=== PATIENT | male | born 2000 | race Caucasian/White ===

== ENCOUNTER 2024-11-29 08:17 | Emergency (ER) | payer OTHER, SELFPAY ==
[2024-11-29 08:23] VITALS: BP 105/71
[2024-11-29 08:28] VITALS: BMI 21.9
[2024-11-29 08:41] LABS: Hematocrit 45.7 % (39.0-52.0); Hemoglobin 16.5 g/dL (13.0-18.0); Mean Corp Hgb Conc. 36.1 g/dL (33.0-37.0); Mean Corpuscular Volume 80.3 fL (80.0-94.0); Nucleated Red Blood Cells % 0 % (-); Platelet Count 332 10^3/uL (130-400); Red Cell Dist. Width 12.4 % (11.5-14.5)
[2024-11-29 09:00] VITALS: BP 97/66
[2024-11-29 09:22] LABS: ALT (SGPT) 21 U/L (0-50); AST (SGOT) 22 U/L (17-59); Albumin 5.5 g/dl (3.5-5.0); Alkaline Phosphatase 59 U/L (38-126); Blood Urea Nitrogen 19 mg/dl (9-20); Calcium 10.2 mg/dl (8.4-10.2); Carbon Dioxide 23 mmol/L (22-30); Chloride 103 mmol/L (98-107); Estimated Creatinine Clearance 116 ml/min; Glucose 106 mg/dl (70-99); Potassium 4.4 mmol/L (3.5-5.1); Sodium 138 mmol/L (135-145); Total Protein 8.4 g/dl (6.3-8.2); eGFR > 60.00
[2024-11-29 10:01] VITALS: BP 115/85
[2024-11-29] MEDS: KEPPRA 1000 MG IV (10:43)
[2024-11-29] MEDS: KLONOPIN 2 MG PO (11:29)
[2024-11-29 11:30] VITALS: BP 98/81
[2024-11-29 12:00] VITALS: BP 102/69
[2024-11-29] MEDS: SUBUTEX 8 MG SL (12:42)
[2024-11-29 13:00] VITALS: BP 99/64
--- NOTE | 2024-11-29 13:05 | ED.GENMED ---
History of Present Illness
General
Chief Complaint: Seizure
Source: patient and police
Exam Limitations: none
Time Seen by Provider: 11/29/24 08:23
Nursing documentation reviewed up to this point in time: agreed with
History of Present Illness
History of Present Illness:
Note:
CHIEF COMPLAINT(S)
Seizure activity.
HISTORY OF PRESENT ILLNESS
The patient is a 24-year-old male with a history of seizure episodes. He reports having experienced four seizures today and two seizures the previous day. He describes a pre-seizure sensation with chest discomfort followed by loss of awareness and
subsequent awakening on the floor with foam at the mouth, indicating a tonic-clonic seizure. The patient has a history of staring episodes since age 12 and has been on levetiracetam therapy. He currently takes 500 mg of levetiracetam twice daily,
which he last took this morning. The patient has been in rehab recently but was discharged due to a short stay. He admits to recent use of non-prescribed benzodiazepines and opioids (yesterday), which may contribute to his current condition.
PAST MEDICAL AND SURIGICAL HISTORY
Previous history of staring episodes and tonic-clonic seizures.
ADDITIONAL HISTORY OBTAINED FROM SOURCES OTHER THAN THE PATIENT
The patient made mention of a neurologist managing his condition and indicated that his mother holds further contact information for the neurologist.
SOCIAL DETERMINANTS AFFECTING HEALTH
The patient reports recent discharge from rehab and ongoing use of non-prescribed substances, including benzodiazepines and opioids.
MEDICATIONS
Levetiracetam 500 mg twice a day.
REVIEW OF SYSTEMS
- Neurological: Recurrent seizures, loss of consciousness.
- Gastrointestinal: Reports of foaming at the mouth.
- Psychiatric: Recent rehabilitation stay indicating ongoing substance use issues.
PHYSICAL EXAM
General: Alert, no acute distress.
Skin: Warm, dry.
Head: Normocephalic, atraumatic.
Neck: Supple, trachea midline.
Eye, Ears, Nose, Mouth, and Throat: Oral mucosa moist.
Cardiovascular: Normal peripheral perfusion, No edema.
Respiratory: Respirations are non-labored.
Gastrointestinal: Abdomen soft and non-distended.
Back: Normal range of motion, Normal alignment.
Musculoskeletal: Normal range of motion, normal strength.
Neurological: Alert and oriented to person, place, time, and situation, No focal neurological deficit observed.
Psychiatric: Cooperative, appropriate mood & affect.
PROBLEM LIST
Acute:
- Recent seizure activity.
Chroni?:
- History of seizure disorder.
PLAN
- Obtain a CT scan and blood tests to evaluate ongoing seizure activity.
- Address substance use, investigate a possible correlation with seizure episodes.
- Possible referral to neurology for further evaluation and management adjustment.
DIFFERENTIAL DIAGNOSIS
The Differential Diagnosis includes, in no particular order and is not limited to:
- Epilepsy
- Substance-induced seizure
- Withdrawal seizure
- Metabolic derangement (e.g., electrolyte imbalance)
- Intracranial lesion
- Infection (e.g., encephalitis)
- Hypoglycemia
- Cardiogenic syncope
- Psychogenic non-epileptic seizures (PNES)
- Trauma-induced seizure
CARE-UPDATE
11/29/24 - :28
Patient has experienced recurrent seizures without any observed seizure activity during the ED stay. EEG results are normal, and no seizure activity has been reported by intermediate staff. Benzodiazepine withdrawal is not suspected, as he has been
continuously taking the medication while in intermediate. Plan to discharge the patient back to intermediate on 1,000 mg of Keppra twice daily. Additionally, recommend starting Suboxone at 8 mg sublingually twice daily. Follow-up with neurology is advised for
further assessment and management.
CARE-UPDATE
11/29/24 - :28
CT scan results are normal. No new abnormalities detected.
EKG
My independent EKG interpretation is:
- Time of EKG: [Not Specified]
- Rhythm: Normal sinus rhythm with sinus arrhythmia
- Heart Rate: 76 bpm
- MA Interval: Normal
- QRS Duration: Normal
- QT Interval: Normal
- Watkins: [Not Specified]
- Abnormalities: None noted
Disposition:
SUMMARY OF ENCOUNTER
The patient, a 24-year-old male with a history of seizure episodes, presented to the emergency department for evaluation of recent seizure activity. He reported experiencing multiple tonic-clonic seizures over the past two days, accompanied by chest
discomfort, loss of awareness, and postictal confusion. The patient has a known seizure disorder, managed with levetiracetam, and has admitted to recent use of non-prescribed benzodiazepines and opioids. During his ED stay, no seizure activity was
observed. EEG and CT scan results were normal, indicating no new neurological abnormalities. The patient was evaluated for possible substance-induced or withdrawal seizures.
DISPOSITION
Discharge to intermediate.
PLAN
The patient will continue on levetiracetam, with an increased dose of 1,000 mg twice daily. It is recommended that he starts Suboxone at 8 mg sublingually twice daily to address opiate dependency. Follow-up with neurology is advised for further
assessment and management adjustment.
INDEPENDENT REVIEW OF LABS AND INTERPRETATION OF TESTS
- My independent interpretation of the CT scan results is normal, with no new abnormalities detected.
- My independent EKG interpretation reveals normal sinus rhythm with sinus arrhythmia and a heart rate of 76 bpm. No abnormalities noted.
MEDICATION RECONCILIATION
- Levetiracetam: Increased to 1,000 mg orally twice daily as maintenance therapy for seizure management.
- Suboxone: Prescribed at 8 mg sublingually twice daily to address opiate dependency.
MEDICAL DECISION MAKING
1. Number and Complexity of Problems Addressed:
Chronic conditions affecting care: History of seizure disorder, benzodiazepine dependency, opiate dependency.
2. Data:
Category 1
- My independent interpretation of the CT scan shows no new abnormalities.
- My independent interpretation of the EKG shows normal sinus rhythm with sinus arrhythmia.
Category 2
- Clinical information was obtained from an independent historian, highlighting the neurologists involvement in the patients care management.
3. Risk:
- Prescription drug management due to ongoing seizure disorder and substance dependencies.
- Consideration of Admission/Observation: Escalation of care including admission/observation was considered given the complexity and risk of the patients presenting complaint and underlying comorbidities. However, ultimately, I feel the patient is
safe for outpatient management with close follow-up. Reasoning: Work-up reassuring, does not reveal any acute life/organ-threatening processes, patients symptoms well controlled upon reevaluation, reexamination is reassuring, vitals are stable,
patient agreeable with discharge, reliable for follow-up.
DIAGNOSIS
- Seizure disorder, not intractable, without status epilepticus (ICD-10: G40.909)
- Benzodiazepine dependence, uncomplicated (ICD-10: F13.20)
- Opioid dependence, uncomplicated (ICD-10: F11.20)
Phy Exam
Physical Exam
Physical Exam:
.
Course
Orders/Labs/Results
Orders:
Orders
11/29/24
Electrocardiogram (*1) Stat
Reason for Study: Chest Pain
Comment: DONE
11/29/24 08:23
CT Head W/o Iv Contrast Urgent
Comment:
Reason For Exam: multiple seizures, hit head
EKG- Treatment ONCE
IV Insert/Care/Rem.- Treatment PRN
Pulse Ox/cont/shift [RESP] Stat
Quantity: 1
11/29/24 08:29
Complete Blood Count/With Diff Urgent
Comprehensive Metabolic Panel Urgent
11/29/24 10:38
EEG Routine Urgent
Reason for Exam: seizure like activity
Levetiracetam Injectable [Keppra] 1,000 mg IV NOW STA
11/29/24 11:22
Clonazepam [Klonopin] 2 mg PO NOW STA
11/29/24 12:29
Buprenorphine [Subutex] 8 mg SL STAT STA
Abnormal Lab Results
11/29/24
08:29
Neutrophils % 77.0 H %
(42.2-75.2)
Lymphocytes % 15.7 L %
(20.5-51.1)
Glucose 106 H mg/dl
(70-99)
Total Protein 8.4 H g/dl
(6.3-8.2)
Albumin 5.5 H g/dl
(3.5-5.0)
11/29/24 08:29
11/29/24 08:29
Vital Signs
Initial and Last Documented VS:
Initial Vital Signs
Temp Pulse Resp BP Pulse Ox
98.7 F 82 16 105/71 98
11/29/24 08:23 11/29/24 08:23 11/29/24 08:23 11/29/24 08:23 11/29/24 08:23
Last Documented Vital Signs
Temp Pulse Resp BP Pulse Ox
98.7 F 60 19 99/64 98
11/29/24 08:23 11/29/24 13:00 11/29/24 13:00 11/29/24 13:00 11/29/24 13:05
*Pulse Oximetry
SaO2: 98
Oxygen Mode of Delivery: Room air
Patient hypoxic: no
*Critical Care Note
Total Time (30-74mins, 75-104mins- exclusive of procedures): Not Applicable
ED Attending Note
-
Portions of this chart may have been created with voice recognition software.� Occasional wrong word or��sound alike� substitutions may have occurred due to the inherent limitations of voice recognition software.
Discharge Plan
Departure
Patient Disposition: Home (Routine Discharge)
Date of Disposition: 11/29/24
Time of Disposition: 13:30
Patient with high blood pressure during this ER visit?: No
Condition: Good
Discharge Problem:
Seizures, Opiate dependence, Benzodiazepine abuse, continuous
Instructions: Seizures, Adult (DC), Opioid use disorder, Benzodiazepine use disorder - ED discharge instructions
Referrals:
[facility] [Family Provider, General]
Activity Restrictions/Additional Instructions:
see [facility] for substance abuse management
Interventions
Interventions:
*Risk Screen - Suicide Last Done: 11/29/24 08:27
*General Assessment Last Done: 11/29/24 08:26
*Neglect/Abuse Screening Last Done: 11/29/24 08:27
*ED- Fall Risk Assessment Last Done: 11/29/24 08:26
*ED COVID-19 Vaccine History Last Done: 11/29/24 08:26
ED- Cardiac Assessment Last Done: 11/29/24 08:28
ED- Neurological Assessment Last Done: 11/29/24 08:28
ED- Pulmonary Assessment Last Done: 11/29/24 08:28
Discharge Date and Time
Print Language: FRISIAN
--- NOTE | 2024-11-29 13:28 | EEG.RPT ---
Electroencephalogram Report
Recording
Date of EE11/29/24
Type of EEG: Routine
Length of EEG recordin minutes
Done with Video Recording: Yes
Patient Status: Emergency Room
Recording Conditions: Awake, Drowsy and Asleep
Hyperventilation Performed: Yes
Photic Stimulation Performed: Yes
Report
LESS THAN 1 HOUR EEG INTERPRETATION:
Unremarkable EEG for age
CLINICAL CORRELATION:
A normal EEG does not rule out a diagnosis of epilepsy. If clinical suspicion for seizure persists, a prolonged recording may be warranted.
Clinical correlation is advised.
METHODS:
A 21 channel digitized electroencephalogram (EEG) was performed using the 10/20 international system of electrode placement and one-lead of ECG recorded. The [employer] quantitative EEG system was utilized.
ELECTROENCEPHALOGRAPHER IMPRESSION(S):
Quality of study
Good
Background
There was an unremarkable anterior-posterior voltage gradient of alpha frequency.
With eye opening the background activity changed to a low voltage mixture of frequencies.
There were no significant asymmetries of background activity noted.
Sleep
Drowsiness present
Stage 1 present
Stage 2 present
Hyperventilation
Minimal increase in background amplitude symmetrically
Photic Stimulation
No activation
ECG
Normal sinus rhythm
== END 2024-11-29 15:43 | disposition home or self-care (01) ==
LOC: EMR 08:17
PROVIDERS: EMERGENCY PHYSICIAN Emergency Medicine
DX: G40.909 Epilepsy, unspecified, not intractable, without status epilepticus (principal); F13.20 Sedative, hypnotic or anxiolytic dependence, uncomplicated; F11.20 Opioid dependence, uncomplicated; I49.8 Other specified cardiac arrhythmias; Z79.899 Other long term (current) drug therapy
CPT/HCPCS: 96374; 99284; 70450; 80053; 85025; 93005; 95816

== ENCOUNTER 2024-11-30 21:57 | Observation (INO) | payer OTHER, SELFPAY ==
[2024-11-30 18:57] VITALS: BP 101/75
[2024-11-30 19:03] VITALS: BMI 22.2
--- NOTE | 2024-11-30 19:53 | ED.GENMED ---
History of Present Illness
General
Chief Complaint: Seizure
Source: patient
Exam Limitations: none
Time Seen by Provider: 11/30/24 19:40
Nursing documentation reviewed up to this point in time: agreed with
History of Present Illness
History of Present Illness:
Patient with history of seizure disorder on Keppra, presents to ED from [facility] secondary to multiple episodes of witnessed seizures, while inside his cell. Patient reports having had at least 3-4 episodes today, each
with each episode lasting seconds to minutes. Patient is complaining of, from having fallen backward in his cell. Denies blurred vision. Denies dizziness. Denies loss of sensation or weakness. Denies tongue biting. Denies urinary or bowel
incontinence. Patient states that he gets sensation of weird feeling in his chest, prior to seizure episodes. Patient reports having had Xanax daily for a long period of time, until he was imprisoned 2 days ago. Patient did receive Klonopin
yesterday and today. Denies recent change in medications. Denies recent illness.
Review of Systems
Review of Systems
Allergies reviewed?: Yes
All Other Systems: ROS reviewed and negative except as documented in HPI and ROS
Constitutional: Reports no symptoms
Respiratory: Reports no symptoms
Cardiac: Reports no symptoms
ABD/GI: Reports no symptoms; Denies nausea or vomiting
Musculoskeletal: Reports no symptoms
Skin: Reports no symptoms
Neurological: Reports headache; Denies dizzy, weakness or numbness
Phy Exam
Physical Exam
Physical Exam:
Physical Exam
General: mild distress, not acutely ill. afebrile
Head: eomi. superficial abrasion noted over derrick of head, without bleeding
Neck: supple. normal range of motion
Heart: s1/s2 regular rate and rhythm.
Lungs: no acute respiratory distress. clear bilaterally
Abdomen: normal bowel sounds. not tender.
Neuro: alert and oriented x 3. no focal neurological deficits. normal speech
Skin: no rash. no tongue laceration noted.
Psychiatric: well kept. interactive and cooperative
Extremities: no edema. no calf tenderness.
Course
Orders/Labs/Results
Orders:
Orders
11/30/24 19:51
0.9% Sodium Chloride 500 ml [Nss] 500 ml IV BOLUS
Acetaminophen [Tylenol] 650 mg PO NOW STA
11/30/24 19:52
Urine Drug Abuse Screen Urgent
11/30/24 19:54
Keppra (Levetiracetam) [S] Urgent
11/30/24 19:55
CPK [Creatine Phosphokinase] Urgent
Complete Blood Count/With Diff Urgent
Comprehensive Metabolic Panel Urgent
Magnesium Urgent
Prolactin Urgent
11/30/24 21:43
Admit/Transfer Patient As Directed
Co-Sign Provider:
Level of Care: Observation services
Assign to:: Medical/Surgical
Physician / Group: gil
Diagnosis: Witnessed multple of Sz mimics episodes
11/30/24 22:48
Clonidine [Catapres] 0.1 mg PO TID
Ondansetron Orally Disint [Zofran Odt (Orally Disintegrating)] 4 mg PO Q6HPRN PRN nausea
11/30/24 22:48
NEUROLOGY CONSULT Routine
Consulting Provider: Ashu Young
Was physician already notified: Yes
Reason for consult: Witnessed multple of Sz mimics episodes
Compression Sleeves [Pneumatic Compression Sleeves] As Directed
Type: Knee high
DX Deep Vein Thrombosis Video Routine
12/01/24 Breakfast
Regular
At Your Request: Full Participation
Does patient need a safe tray?: Yes
EEG Routine IN AM
Reason for Exam: eval for status epilepticus
Neurology Consult: OTHER
Comment: Dr Ashu Young
CBC/No Diff [Complete Blood Count/No Diff] IN AM
CMP [Comprehensive Metabolic Panel] IN AM
12/01/24 08:00
Clonazepam [Klonopin] 2 mg PO BID
Levetiracetam [Keppra] 1,000 mg PO BID
Abnormal Lab Results
11/30/24
19:55
Absolute Monos (auto) 0.7 H 10^3/uL
(0.1-0.6)
BUN 29 H mg/dl
(9-20)
Albumin 5.2 H g/dl
(3.5-5.0)
11/30/24 19:55
11/30/24 19:55
Vital Signs
Initial and Last Documented VS:
Initial Vital Signs
Pulse Resp BP Pulse Ox
65 18 101/75 94
11/30/24 18:57 11/30/24 18:57 11/30/24 18:57 11/30/24 18:57
Last Documented Vital Signs
Temp Pulse Resp BP Pulse Ox
98.1 F 59 16 88/55 100
11/30/24 22:50 11/30/24 22:50 11/30/24 22:50 11/30/24 22:50 11/30/24 22:50
MDM/Problems Addressed
MDM/Problems Addressed:
Patient return visit to ED with multiple witnessed seizure episodes. As such, patient will be admitted for further evaluation and treatment. Evening dose of Keppra provided prior to arrival.
, neurology, notified via [employer].
*Pulse Oximetry
SaO2: 100
Oxygen Mode of Delivery: Room air
Patient hypoxic: no
*Critical Care Note
Total Time (30-74mins, 75-104mins- exclusive of procedures): Not Applicable
ED Attending Note
-
Portions of this chart may have been created with voice recognition software.� Occasional wrong word or��sound alike� substitutions may have occurred due to the inherent limitations of voice recognition software.
Discharge Plan
Departure
Patient Disposition: Admit
Date of Disposition: 11/30/24
Time of Disposition: 20:56
Admit to: Telemetry
Presentation/result/management discussed w/ accepting MD/DO: Hospitalist
Discharge Problem:
Seizure
Interventions
Interventions:
*Risk Screen - Suicide Last Done: 11/30/24 22:49
*General Assessment Last Done: 11/30/24 19:31
*Neglect/Abuse Screening Last Done: 11/30/24 22:00
*ED- Fall Risk Assessment Last Done: 11/30/24 19:04
*ED COVID-19 Vaccine History Last Done: 11/30/24 22:49
*Nursing Disposition Last Done: 11/30/24 22:51
ED- Neurological Assessment Last Done: 11/30/24 19:31
Discharge Date and Time
Discharge Date/Time: 11/30/24 22:51
[2024-11-30] MEDS: TYLENOL 650 MG PO (19:56)
[2024-11-30] MEDS: NSS 500 IV ×2 (19:57→23:29)
[2024-11-30 20:00] VITALS: BP 87/65
[2024-11-30 20:16] LABS: Hematocrit 44.6 % (39.0-52.0); Hemoglobin 15.7 g/dL (13.0-18.0); Mean Corp Hgb Conc. 35.2 g/dL (33.0-37.0); Mean Corpuscular Volume 82.7 fL (80.0-94.0); Nucleated Red Blood Cells % 0 % (-); Platelet Count 299 10^3/uL (130-400); Red Cell Dist. Width 12.4 % (11.5-14.5)
[2024-11-30 20:25] LABS: ALT (SGPT) 18 U/L (0-50); AST (SGOT) 19 U/L (17-59); Albumin 5.2 g/dl (3.5-5.0); Alkaline Phosphatase 57 U/L (38-126); Blood Urea Nitrogen 29 mg/dl (9-20); Calcium 9.3 mg/dl (8.4-10.2); Carbon Dioxide 26 mmol/L (22-30); Chloride 99 mmol/L (98-107); Estimated Creatinine Clearance 96 ml/min; Glucose 94 mg/dl (70-99); Magnesium 2.2 mg/dl (1.6-2.3); Potassium 4.3 mmol/L (3.5-5.1); Sodium 136 mmol/L (135-145); Total Protein 7.6 g/dl (6.3-8.2); eGFR > 60.00
[2024-11-30 20:29] VITALS: BP 96/68
[2024-11-30 21:01] VITALS: BP 92/61
--- NOTE | 2024-11-30 21:40 | HPS.HSE ---
Family Physician
-
Family Physician: [facility]
Chief Complaint
-
witnessed Sz like episodes in [facility]
History of Present Illness
HPI�
24M from [facility] seen at ER :
- pw multiple episodes of witnessed seizures, while inside his cell.
- at least 3-4 episodes today, each with each episode lasting seconds to minutes.
- having fallen backward
- reports having had Xanax daily for a long period of time, until he was imprisoned 2 days ago.
- Patient did receive Klonopin yesterday and today.
- Denies recent change in medications. Denies recent illness.
ROS
Denies blurred vision.
Denies dizziness.
Denies loss of sensation or weakness.
Denies tongue biting.
Denies urinary or bowel incontinence.
Medical History
Past Medical History
Past Medical History: Reports Psychiatric (anxiety )
Past Surgical History: Reports None
Social History
Tobacco: Non-smoker
Alcohol: None
Drug: Other
Family History
Family History: Not pertinent
Allergies / Home Medications
Allergies reflects when Allergies were last updated in [email or web address].
Home Medications with original date entered in [email or web address]
Allergy/Medication List:
Allergies
Allergy/AdvReac Type Severity Reaction Status Date / Time
No Known Allergies Allergy Verified 11/30/24 19:04
Home Medications
acetaminophen 325 mg capsule 325 mg PO TID 11/30/24
clonazepam 2 mg tablet 2 mg PO BID 11/30/24
clonidine HCl 0.1 mg tablet 0.1 mg PO TID 11/30/24
levetiracetam 1,000 mg tablet (Keppra) 1,000 mg PO BID 11/30/24
ondansetron 4 mg disintegrating tablet 4 mg PO Q6H PRN nausea 11/30/24
Review of Systems
-
Constitutional: Reports No Symptoms
EENT: Reports No Symptoms
Respiratory: Reports No Symptoms
Cardiac: Reports No Symptoms
Abdomen/GI: Reports No Symptoms
: Reports No Symptoms
Musculoskeletal: Reports No Symptoms
Skin: Reports No Symptoms
Neurological: Reports See HPI
Endocrine: Reports No Symptoms
Hematologic/Lymphatic: Reports No Symptoms
Psych: Reports No Symptoms
Physical Exam
Vital Signs
Vital Signs
Temp Pulse Resp BP Pulse Ox
97.4 F 59 12 101/75 100
11/30/24 20:45 11/30/24 19:30 11/30/24 19:30 11/30/24 18:57 11/30/24 19:53
Physical Exam
General: Well Developed, Well Nourished and No Apparent Distress
HEENT: NormoCephalic, Moist mucous membranes and Atraumatic
Respiratory: Clear
Cardiac: S1/S2 and Regular Rhythm; No Murmur or Rub
GI: Soft, Non Tender, Non Distended and Normal Bowel Sounds; No Organomegaly
Rectal: Deferred by Provider
Musculoskeletal: No Clubbing, No Cyanosis and No Edema
Skin: No Rash
Neuro: Nonfocal/grossly intact
Laboratory Results
-
11/30/24 19:55
11/30/24 19:55
Laboratory Results
Total Bilirubin 1.2 mg/dl (0.2-1.3) 11/30/24 19:55
AST 19 U/L (17-59) 11/30/24 19:55
ALT 18 U/L (0-50) 11/30/24 19:55
Alkaline Phosphatase 57 U/L (38-126) 11/30/24 19:55
Data Reviewed
-
CT Scan: Report Reviewed by me
Lab Data: Labs Reviewed by me
Impression/Plan
-
Relevant Data�
11/30/24
19:55
Absolute Monos (auto) 0.7 H
BUN 29 H
Albumin 5.2 H
HCT
Unremarkable unenhanced CT of the brain
EKG
NORMAL SINUS RHYTHM WITH SINUS ARRHYTHMIA
NORMAL ECG
NO PREVIOUS ECGS AVAILABLE
Confirmed by SANDRA MCCLELLAN MD ([id number]) on 11/29/2024 8:55:50 AM
ASSESSMENT & PLAN
[facility] multiple [facility] Sz mimics episodes [facility]
Reports Passed out and fall backwards
Reports HX Daily Xanax use -
- DDX: Status epilepticus vs. conversion disorder vs. BZD withdrawal seizure
- Not in outside hospital Rx list
- No evidence of tongue bitting
- f/u Keppra level
- f/u UDS
- initiated clonazepam 2mg PO BID
- agree with Keppra 1000mg BID
- agree with clonidine 0.1 mg BID
- EEG
- Neuro consult
DVT Px: SCD
Full code
OBS MS
[2024-11-30 22:50] VITALS: BP 88/55; BMI 21.3
--- NOTE | 2024-11-30 23:30 | PTCARENOTE ---
Receive patient from ED. Patient AAOx3, accompanied by two guards. Patient assessed, oriented to the unit. Call gonzalez in reach.
--- NOTE | 2024-11-30 23:30 | PTCARENOTE ---
Patient's BP 88/55. Covering provider aware. Orders received.
[2024-11-30] MEDS: CATAPRES PO (23:37)
[2024-12-01] MEDS: NSS 1000 IV (00:15)
[2024-12-01 01:09] VITALS: BP 92/57
[2024-12-01 03:38] VITALS: BP 92/50
[2024-12-01] MEDS: KEPPRA 1000 MG PO (08:07)
[2024-12-01] MEDS: KLONOPIN 2 MG PO (08:07)
[2024-12-01 08:35] VITALS: BP 111/66
[2024-12-01] MEDS: CATAPRES 0.1 MG PO (08:51)
[2024-12-01] MEDS: TYLENOL 650 MG PO (08:51)
--- NOTE | 2024-12-01 09:00 | VATNOTE ---
VAT rounds: Patient currently has no iv access. patient refusing restart. Md aware. will continue to monitor the needs.
--- NOTE | 2024-12-01 09:30 | PTCARENOTE ---
Patient anxious and agitated this morning; he states that he wants to be discharged and is demanding to see a doctor; patient pulled out his IV and is refusing to have a new one placed; Dr. Rodriguez notified and came to speak with patient; ok for
no access at this time per MD; awaiting neurology input.
--- NOTE | 2024-12-01 10:00 | PTCARENOTE ---
Patient had 2 episodes vomiting after PO medications; refused Zofran.
--- NOTE | 2024-12-01 12:31 | PTCARENOTE ---
Patient refused 1100 vital signs.
[2024-12-01] MEDS: NSS IV (12:34)
--- NOTE | 2024-12-01 12:56 | CON.NEURO ---
Neuro Assessment/Plan
Assessment
EEG was normal.
24 yr old man with benzo withdrawal seizure. in place of benzo taper, would give Librium 100 mg x1 given long half life and active metabolites
can be discharged back to corrections
epilepsy continue Keppra 1000 BID
return to ED if 2 or more sz without return to baseline, sz >5 mins, or post ictal >1 hr
Consultation
Order
Date of Consultation: 12/01/24
Requesting Provider: Leah
Reason for Consult: seizure
Subjective/Objective
Subjective Data
Date of Service: December 01, 2024
24M from [facility] h/o epilepsy presenting with 3-4 seizures, each lasting seconds to minutes. He was taking 4-5 bars of Xanax 2mg every day until he was incarcerated 3 days ago. in penitentiary got Klonopin daily.
prior to this his epilepsy was well controlled with Keppra 1000 BID.
Objective Data
Vital Signs
Temp Pulse Resp BP Pulse Ox
36.7 C 56 16 111/66 100
12/01/24 08:35 12/01/24 08:51 12/01/24 08:35 12/01/24 08:51 12/01/24 08:35
Sodium 136 mmol/L (135-145) 11/30/24 19:55
Potassium 4.3 mmol/L (3.5-5.1) 11/30/24 19:55
BUN 29 mg/dl (9-20) H 11/30/24 19:55
Glucose 94 mg/dl (70-99) 11/30/24 19:55
Calcium 9.3 mg/dl (8.4-10.2) 11/30/24 19:55
Ur Buprenorphine Negative (Negative) 12/01/24 03:30
Patient Allergies
No Known Allergies Allergy (Verified 11/30/24 19:04)
Physical Exam
-
AAOx3, speech clear, language intact
VFF, EOMI, face symmetric
full strength b/l UE/LE
sensation intact
Medications
-
Active Medications
Generic Name Dose Route Start Last Admin
Trade Name Freq PRN Reason Stop Dose Admin
Acetaminophen 650 mg 12/01/24 08:32 12/01/24 08:51
Acetaminophen 325 Mg Tablet PO 12/29/24 08:31 650 mg
Q4HPRN PRN Administration
BUCHANAN/ mild pain/ fever
Clonazepam 2 mg 12/01/24 08:00 12/01/24 08:07
Clonazepam 1 Mg Tablet PO 12/29/24 07:59 2 mg
BID OPAL Administration
Clonidine HCl 0.1 mg 11/30/24 22:48 12/01/24 08:51
Clonidine 0.1 Mg Tablet PO 12/28/24 22:47 0.1 mg
TID OPAL Administration
Sodium Chloride 1,000 mls @ 80 mls/hr 11/30/24 23:15 12/01/24 12:34
Nss IV Not Given
.[id number] OPAL
Levetiracetam 1,000 mg 12/01/24 08:00 12/01/24 08:07
Levetiracetam 500 Mg Regular Release Tablet PO 12/29/24 07:59 1,000 mg
BID OPAL Administration
Ondansetron HCl 4 mg 11/30/24 22:48
Ondansetron 4 Mg (Orally-Disintegrating) Tablet PO 12/28/24 22:47
Q6HPRN PRN
nausea
Sodium Chloride 0 flush 11/30/24 23:00
Sodium Chloride 0.9% (Flush) Syringe IV 12/28/24 22:59
PER PROTOCOL OPAL
Home Medications
�Medication �Instructions �Recorded
acetaminophen 325 mg capsule 325 mg PO TID 11/30/24
clonazepam 2 mg tablet 2 mg PO BID 11/30/24
clonidine HCl 0.1 mg tablet 0.1 mg PO TID 11/30/24
levetiracetam 1,000 mg tablet 1,000 mg PO BID 11/30/24
(Keppra)
ondansetron 4 mg disintegrating 4 mg PO Q6H PRN nausea 11/30/24
tablet
[2024-12-01] MEDS: LIBRIUM 100 MG PO (13:15)
--- NOTE | 2024-12-01 13:16 | W.DCSUMMARY ---
Discharge Summary
Discharge Data
Date of Admission: 11/30/24
Date of Discharge: 12/01/24
Total time spent discharging patient (in min): 48
-
Pending Results: No
Hospital Course
Mr. Putnam is a 24-year-old male with a medical history of epilepsy (on Keppra since age 12) and polysubstance abuse who presented following an episode of witnessed seizure-like activity at [facility]. His vital signs and labs
in the ED were unremarkable, other than a urine tox screen positive for opiates, benzodiazepines, and marijuana. Imaging of his head was also unremarkable. He was evaluated by neurology and EEG was obtained which showed no acute abnormalities. He
has remained hemodynamically stable since arrival. He appears at baseline mental status. He was given a single dose of Librium 100 mg p.o. which is long-acting. At time of hospital discharge he was medically stable. He will be discharged back
into the custody of law enforcement. If he has 2 or more seizures without return to baseline in between, he should return to the emergency department for further evaluation and management. Patient reports plans to seek drug and alcohol rehab in
the near future, which is an excellent idea.
General: No Apparent Distress, Comfortable and Conversant, in law enforcement custody
HEENT: NormoCephalic, Moist mucous membranes, Atraumatic
Respiratory: Clear and Non Labored Respirations
Cardiac: S1/S2 and Regular Rhythm; No Rub or Gallop
GI: Soft, Non Tender, Non Distended and Normal Bowel Sounds
Musculoskeletal: No Edema, no deformity
: NO Cardenas
Neuro: Awake, Alert, Nonfocal/grossly intact
Psych: Anxious but cooperative
Discharge Plan
-
Patient Disposition: Senior Living
Discharge Diagnosis/Procedures: Seizures
Activity Restrictions/Additional Instructions:
Mr. Putnam is a 24-year-old male with a medical history of epilepsy (on Keppra since age 12) and polysubstance abuse who presented following an episode of witnessed seizure-like activity at [facility]. His vital signs and labs
in the ED were unremarkable, other than a urine tox screen positive for opiates, benzodiazepines, and marijuana. Imaging of his head was also unremarkable. He was evaluated by neurology and EEG was obtained which showed no acute abnormalities. He
has remained hemodynamically stable since arrival. He appears at baseline mental status. He was given a single dose of Librium 100 mg p.o. which is long-acting. At time of hospital discharge he was medically stable. He will be discharged back
into the custody of law enforcement. If he has 2 or more seizures without return to baseline in between, he should return to the emergency department for further evaluation and management. Patient reports plans to seek drug and alcohol rehab in
the near future, which is an excellent idea.
Referrals:
[facility],Facility [Family Provider, General]
Prescriptions:
Continued
ondansetron 4 mg Tablet,Disintegrating
4 mg PO Q6H PRN (Reason: nausea)
acetaminophen 325 mg Capsule
325 mg PO TID
levetiracetam [Keppra] 1,000 mg Tablet
1,000 mg PO BID
clonidine HCl 0.1 mg Tablet
0.1 mg PO TID
clonazepam 2 mg Tablet
2 mg PO BID
Discharge Orders:
Discharge Patient (As Directed); Ordered 12/01/24
Ordered By: Sean Rodriguez
Discharge Date and Time
Print Language: THAI
--- NOTE | 2024-12-01 14:49 | CM ---
[facility] notified of patient's discharge and return today.
== END 2024-12-01 15:02 ==
LOC: 2 NORTH 21:57
PROVIDERS: ADMITTING PHYSICIAN Internal Medicine; ATTENDING PHYSICIAN Internal Medicine; CONSULT PHYSICIAN Psychiatry & Neurology Clinical Neurophysiology; EMERGENCY PHYSICIAN Emergency Medicine
DX: G40.909 Epilepsy, unspecified, not intractable, without status epilepticus (principal); F13.239 Sedative, hypnotic or anxiolytic dependence with withdrawal, unspecified; F41.9 Anxiety disorder, unspecified; I49.8 Other specified cardiac arrhythmias; R55 Syncope and collapse; W19.XXXA Unspecified fall, initial encounter; Y93.89 Activity, other specified; Y92.143 Cell of prison as the place of occurrence of the external cause; Z79.899 Other long term (current) drug therapy
CPT/HCPCS: 80053; 80306; 80307; 82550; 83735; 84146; 85025; 96360; 99284; G0378